=== PATIENT | male | born 1990 | race Caucasian/White ===

== ENCOUNTER 2018-12-05 23:11 | Emergency (ER) | payer SELFPAY, OTHER ==
[2018-12-05] MEDS: LORAZEPAM 1 MG TAB PO (23:52)
== END 2018-12-05 23:55 | disposition home or self-care (01) ==
LOC: E/R 23:55
DX: F15.180 Other stimulant abuse with stimulant-induced anxiety disorder (principal); F17.210 Nicotine dependence, cigarettes, uncomplicated
CPT/HCPCS: 99283